=== PATIENT | male | born 1945 | race Caucasian/White ===

== ENCOUNTER 2022-01-27 12:31 | Emergency (ER) | payer OTHER ==
[~2022-01-27] VITALS: Ht 188 cm; Wt 113.4 kg
[2022-01-27] MEDS ORDERED: ONDANSETRON HCL 4 MG/2 ML VIAL IV ONE ×2 (14:30→19:30)
[2022-01-27] MEDS ORDERED: SODIUM CHLORIDE 0.9% 1,000 ML IV ONE ×2 (14:30→19:30)
[2022-01-27 15:37] LABS: Basophils # (auto) 0.1 10 ^3/uL (0-0.2); Basophils % (auto) 1.3 % (0.0-2.0); Eosinophils # (auto) 0 10 ^3/uL (0-0.8); Hematocrit 43.5 % (41.0-53.0); Lymphocytes # (auto) 0.2 10 ^3/uL (0.4-5.4); Lymphocytes % (auto) 2.5 % (10.0-50.0); Mean Corpuscular Hgb Conc. 34.4 g/dL (32.0-36.0); Mean Corpuscular Volume 95.7 fL (80.0-100.0); Monocytes # (auto) 0.2 10 ^3/uL (0-1.3); Neutrophils # (auto) 6.9 10 ^3/uL (1.6-8.6); Neutrophils % (auto) 93.2 % (37.0-80.0); Red Blood Cells 4.54 10^6/uL (4.5-5.90); Red Cell Distribution Width 13.3 % (11.8-14.3); White Blood Cell 7.4 10^3/uL (4.4-10.8)
[2022-01-27 15:57] LABS: Albumin 3.8 g/dL (3.4-5.0); BUN/Creatinine Ratio 18.5; Calcium 8.7 mg/dL (8.5-10.1); Potassium 4.8 mmol/L (3.5-5.1)
[2022-01-27 16:07] LABS: Total Protein 7.3 g/dL (6.4-8.2)
[2022-01-27] MEDS ORDERED: ONDANSETRON HCL 4 MG/2 ML VIAL ONE (19:13)
[2022-01-27] MEDS ORDERED: CIPR-173 PO (19:42)
[2022-01-27] MEDS ORDERED: ONDA-144 PO (19:42)
[2022-01-27] MEDS ORDERED: METR500T PO (19:42)
[2022-01-27] MEDS ORDERED: PERCOT PO (19:42)
[2022-01-27 20:16] VITALS: BP 121/68
== END 2022-01-27 20:18 | disposition home or self-care (01) ==
LOC: ER 12:31 → EDBD 12:31 → ER 20:18
DX: K57.30 Diverticulosis of large intestine without perforation or abscess without bleeding (principal); Z79.2 Long term (current) use of antibiotics; Z79.899 Other long term (current) drug therapy; Z88.5 Allergy status to narcotic agent; Z88.1 Allergy status to other antibiotic agents
CPT/HCPCS: 36415; 74176; 80053; 83690; 84484; 85025; 93005; 96361; 96374; 96376; 99285; J2405; J7030

== ENCOUNTER 2023-06-23 23:03 | Emergency (ER) | payer OTHER ==
[~2023-06-23] VITALS: Ht 175.3 cm; Wt 113.6 kg
[~2023-06-23 23:03] MED LIST: CIPR-173 PO; METR500T PO; ONDA-144 PO; PERCOT PO
[2023-06-23 23:56] LABS: Basophils # (auto) 0 10 ^3/uL (0-0.2); Basophils % (auto) 0.4 % (0.0-2.0); Eosinophils # (auto) 0.1 10 ^3/uL (0-0.8); Hematocrit 37.9 % (41.0-53.0); Hemoglobin 12.9 g/dL (13.5-17.5); Lymphocytes # (auto) 1.8 10 ^3/uL (0.4-5.4); Lymphocytes % (auto) 31.7 % (10.0-50.0); Mean Corpuscular Hemoglobin 33.4 pg (28.0-32.0); Mean Corpuscular Hgb Conc. 34.1 g/dL (32.0-36.0); Monocytes # (auto) 0.5 10 ^3/uL (0-1.3); Monocytes % (auto) 8.8 % (0.0-12.0); Neutrophils # (auto) 3.3 10 ^3/uL (1.6-8.6); Neutrophils % (auto) 57.1 % (37.0-80.0); Red Blood Cells 3.86 10^6/uL (4.5-5.90); Red Cell Distribution Width 13.5 % (11.8-14.3); White Blood Cell 5.7 10^3/uL (4.4-10.8)
[2023-06-24 00:13] LABS: Alanine Aminotransferase 20 U/L (7-40); Albumin 4.3 g/dL (3.2-4.8); Alkaline Phosphatase 94 U/L (46-116); Anion Gap 8 (5-15); Aspartate Aminotransferase 21 U/L (13-40); BUN/Creatinine Ratio 12.1 (10.0-20.0); Bilirubin, Total 0.5 mg/dL (0.2-1.0); Blood Alcohol 229.3 mg/dL (<10); Blood Urea Nitrogen 13 mg/dL (9-23); Calcium 8.8 mg/dL (8.7-10.4); Carbon Dioxide 23 mmol/L (20-30); Chloride 106 mmol/L (98-107); Glucose 112 mg/dL (74-106); Potassium 3.7 mmol/L (3.5-5.1); Sodium 137 mmol/L (136-145)
[2023-06-24 00:14] LABS: Total Protein 6.6 g/dL (5.7-8.2)
[2023-06-24 00:23] VITALS: PULSE 70; RESP 14; O2SAT 97
[2023-06-24 04:00] VITALS: BP 109/53; PULSE 71; RESP 14; O2SAT 96
== END 2023-06-24 06:00 | disposition home or self-care (01) ==
LOC: ER 23:03 → EDBD 23:03 → ER 06-24 06:00
DX: F10.129 Alcohol abuse with intoxication, unspecified (principal); I10 Essential (primary) hypertension; I25.2 Old myocardial infarction; E78.5 Hyperlipidemia, unspecified; R51.9 Headache, unspecified; Z88.8 Allergy status to other drugs, medicaments and biological substances; Z98.890 Other specified postprocedural states; Z79.1 Long term (current) use of non-steroidal anti-inflammatories (NSAID); Z79.899 Other long term (current) drug therapy; Y90.0 Blood alcohol level of less than 20 mg/100 ml
CPT/HCPCS: 36415; 70450; 71250; 72125; 74176; 80053; 80320; 83880; 84484; 85025; 93005

== ENCOUNTER 2024-11-01 10:02 | Inpatient (IN) | payer OTHER ==
[~2024-11-01] VITALS: Ht 180.3 cm; Wt 105.7 kg
[2024-11-01 10:41] LABS: Basophils # (auto) 0 10 ^3/uL (0-0.2); Basophils % (auto) 0.8 % (0.0-2.0); Eosinophils # (auto) 0.1 10 ^3/uL (0-0.8); Eosinophils % (auto) 2.3 % (0.0-7.0); Hematocrit 40.3 % (41.0-53.0); Hemoglobin 13.4 g/dL (13.5-17.5); Lymphocytes # (auto) 0.9 10 ^3/uL (0.4-5.4); Lymphocytes % (auto) 16.4 % (10.0-50.0); Mean Corpuscular Hemoglobin 31.1 pg (28.0-32.0); Mean Corpuscular Hgb Conc. 33.1 g/dL (32.0-36.0); Mean Corpuscular Volume 93.9 fL (80.0-100.0); Monocytes # (auto) 0.5 10 ^3/uL (0-1.3); Monocytes % (auto) 8.9 % (0.0-12.0); Neutrophils # (auto) 3.9 10 ^3/uL (1.6-8.6); Neutrophils % (auto) 71.6 % (37.0-80.0); Nucleated Red Blood Cells % 0.2 %; Platelet Count (auto) 244 10^3/uL (140-450); Red Cell Distribution Width 14.2 % (11.8-14.3); White Blood Cell 5.5 10^3/uL (4.4-10.8)
--- NOTE | 2024-11-01 10:42 | ECG ---
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
[2024-11-01 11:00] VITALS: RESP 14; O2SAT 93
[2024-11-01 11:07] LABS: Anion Gap 7 (5-15); Carbon Dioxide 25 mmol/L (20-31); Chloride 104 mmol/L (98-107); Sodium 136 mmol/L (136-145)
[2024-11-01 11:08] LABS: Calcium 9.7 mg/dL (8.7-10.4)
[2024-11-01 11:13] LABS: BUN/Creatinine Ratio 11.8 (10.0-20.0); Blood Urea Nitrogen 10 mg/dL (9-23); Glucose 119 mg/dL (74-106)
[2024-11-01] MEDS: SODIUM CHLORIDE 0.9% 1,000 ML IV ONE (11:39)
--- NOTE | 2024-11-01 11:42 | DVH ---
Left lower extremity venous duplex Clinical History: dvt Comparison: None Technique: Duplex Doppler evaluation of the deep venous system of the left lower extremity from the common femor al vein to the popliteal vein including color Doppler and spectral/pulsed waveform analysis was perfo rmed. Findings: The common femoral vein demonstrates appropriate compressibility and waveform variability. There is compressibility/patency of the great saphenous vein at the proximal thigh. The femoral vein demonstrates appropriate compressibility and waveform variability. The deep femoral vein demonstrates appropriate compressibility and waveform variability. The popliteal vein demonstrates appropriate compressibility and waveform variability. Calf veins are suboptimally visualized. Impression: No left femoropopliteal venous thrombosis.
[2024-11-01 12:25] LABS: Urine Bacteria None Seen /hpf (None Seen)
[2024-11-01 12:43] LABS: Urine Blood Negative /uL (Negative); Urine Clarity Clear (Clear); Urine Color Yellow (Yellow); Urine Mucus FEW (None Seen); Urine Protein, UAD Negative (Negative); Urine Specific Gravity 1.017 (1.001-1.035); Urine Squamous Epithelial Cell None Seen /hpf (<5); Urine Urobilinogen Normal (Negative); Urine WBC 1 /HPF (0-3); Urine pH 6.5 (5.0-9.0)
[2024-11-01] MEDS ORDERED: ONDANSETRON HCL 4 MG/2 ML VIAL IV PRN (16:00)
--- NOTE | 2024-11-01 16:00 | DVH ---
EXAM: CT HEAD WITHOUT CONTRAST HISTORY: hallucination/blurred vision COMPARISON: CT HEAD WITHOUT CONTRAST on DOS: 06/24/23 TECHNIQUE: Axial images of the head were obtained and reformatted in coronal and sagittal planes. All CT scans at this medical facility are performed using dose modulation techniques as appropriate t o a performed exam including the following: Automated exposure control was utilized; adjustment of th e MA and/or KV according to patient size; and use of iterative reconstruction technique. CT Dose: CTDI volume is 70 mGy. Dose-length product is 1325 mGy*cm FINDINGS: There is no evidence of acute intracranial hemorrhage, mass, mass effect midline shift. There is no h ydrocephalus or extra-axial fluid collection. There are several small chronic infarcts in the left c lincoln radiata and left basal ganglia. There are mild chronic small-vessel white matter ischemic benoit ges. The visualized paranasal sinuses and mastoid air cells are clear. The calvarium is intact. There is nonspecific soft tissue swelling and skin thickening in the right parietal vertex scalp. IMPRESSION: 1. No acute intracranial process. 2. Several small chronic infarcts in the left rockwell radiata and left basal ganglia. 3. Nonspecific soft tissue swelling and skin thickening in the right parietal vertex scalp. HS:Y
[2024-11-01] MEDS ORDERED: ATOR-47 (16:20)
[2024-11-01] MEDS ORDERED: LATA0.008 EACHEYE (16:20)
[2024-11-01] MEDS ORDERED: FLUT50SP (16:20)
[2024-11-01] MEDS ORDERED: BRIM0.2S17 EACHEYE (16:20)
[2024-11-01] MEDS ORDERED: DORZ1SOL3 (16:20)
[2024-11-01] MEDS ORDERED: LACT10SO3 PO (16:20)
[2024-11-01] MEDS ORDERED: ESCI1TAB36 (16:20)
[2024-11-01] MEDS ORDERED: CLOP75TA70 (16:20)
[2024-11-01] MEDS ORDERED: AMLO1TAB23 (16:20)
[2024-11-01] MEDS ORDERED: ATEN25TA (16:20)
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
[2024-11-01 18:21] LABS: Amphetamine Screen, Urine Neg (NEGATIVE); Barbiturate Scree,Urine Neg (NEGATIVE); Opiate Scree,Urine Neg (NEGATIVE)
[2024-11-01 18:21] LABS: Triglycerides 92 mg/dL (< 150)
[2024-11-01 18:22] LABS: Cholesterol 101 mg/dL (< 200); LDL Cholesterol 47 mg/dL (< 100)
[2024-11-01 18:22] LABS: Benzodiazephine Screen, Urine Neg (NEGATIVE); Cannabinoid Screen, Urine Neg (NEGATIVE); Cocaine Screen, Urine Neg (NEGATIVE); Phencyclidine Screen, Urine Neg (NEGATIVE)
[2024-11-01 18:24] LABS: HDL Cholesterol 29 mg/dL (40-59)
--- NOTE | 2024-11-01 18:28 | DVH ---
CHEST RADIOGRAPH Indication: cp Technique: Single frontal view of the chest was obtained Comparison: None FINDINGS: Lines and Tubes: Dual-chamber pacemaker in place with pulse generator over the left chest. Lungs: No focal consolidation. Pleura: No effusion. No pneumothorax. Cardiomediastinal contours: Unremarkable Bones: No acute osseous abnormality. IMPRESSION: 1. Poor inspiratory effort. HS:Y Mervat
[2024-11-01 19:30] VITALS: PULSE 70; RESP 17; O2SAT 93
[2024-11-01 21:00] VITALS: BP 132/77; PULSE 71; RESP 18; TEMP 97.7; O2SAT 95
[2024-11-01 21:20] VITALS: PULSE 72
[2024-11-01 21:21] VITALS: BP 122/79; PULSE 75; RESP 18; TEMP 97.7; O2SAT 95
[2024-11-01 21:22] VITALS: PULSE 71; RESP 18; O2SAT 95
[2024-11-01] MEDS ORDERED: ENOX40IN7 SC (22:34)
[2024-11-02] VITALS (8 sets, daily range): BP systolic 119–148; BP diastolic 61–77; PULSE 72–76; RESP 16–20; TEMP 97.8–98.8; O2SAT 94–98
[2024-11-02 06:05] LABS: Alanine Aminotransferase 24 U/L (7-40); Albumin 4.4 g/dL (3.2-4.8); Anion Gap 9 (5-15); Aspartate Aminotransferase 23 U/L (13-40); BUN/Creatinine Ratio 14.5 (10.0-20.0); Blood Urea Nitrogen 10 mg/dL (9-23); Carbon Dioxide 23 mmol/L (20-31); Chloride 104 mmol/L (98-107); Potassium 3.8 mmol/L (3.5-5.1); Sodium 136 mmol/L (136-145)
[2024-11-02 06:06] LABS: Bilirubin, Total 1.2 mg/dL (0.2-1.0); Total Protein 6.7 g/dL (5.7-8.2)
[2024-11-02 06:20] LABS: Basophils # (auto) 0 10 ^3/uL (0-0.2); Basophils % (auto) 0.4 % (0.0-2.0); Eosinophils # (auto) 0.1 10 ^3/uL (0-0.8); Eosinophils % (auto) 1.7 % (0.0-7.0); Hemoglobin 13.5 g/dL (13.5-17.5); Lymphocytes # (auto) 0.8 10 ^3/uL (0.4-5.4); Lymphocytes % (auto) 14.2 % (10.0-50.0); Mean Corpuscular Hemoglobin 31.6 pg (28.0-32.0); Mean Corpuscular Hgb Conc. 33.8 g/dL (32.0-36.0); Mean Corpuscular Volume 93.4 fL (80.0-100.0); Monocytes # (auto) 0.6 10 ^3/uL (0-1.3); Monocytes % (auto) 10.3 % (0.0-12.0); Neutrophils # (auto) 4.1 10 ^3/uL (1.6-8.6); Neutrophils % (auto) 73.4 % (37.0-80.0); Nucleated Red Blood Cells % 0.1 %; Platelet Count (auto) 217 10^3/uL (140-450); Red Blood Cells 4.28 10^6/uL (4.5-5.90); Red Cell Distribution Width 14.7 % (11.8-14.3); White Blood Cell 5.6 10^3/uL (4.4-10.8)
[2024-11-02 06:40] LABS: Alkaline Phosphatase 208 U/L (46-116); Glucose 107 mg/dL (74-106)
[2024-11-02] MEDS ORDERED: ENOXAPARIN SOD 30 MG/0.3 ML SYRINGE SC SCH (10:00)
[2024-11-02] MEDS ORDERED: OPTISON 3ml Vial for INJ IV ONE (10:10)
[2024-11-02] MEDS: PANTOPRAZOLE 40 MG/10 ML VIAL INJ IV SCH (11:02)
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
--- NOTE | 2024-11-02 18:46 | DVHSR ---
APPROVED REPORT EXAM: LIMITED Two-dimensional and M-mode echocardiogram with Doppler, color Doppler and Optison. Blood Pressure: 131/76 mmHg INDICATION Chest Pain RISK FACTORS Height: 70, Weight: 246 DIMENSIONS EF (%) 56.0 (55-70%)Rt. Atrium (1.9-4.0cm)Asc. Aorta cm Mitral Valve MitralMitral Stenosis E wave0.53m/sMV Mean GR.mmHg A wave1.04m/sMV Peak GR.mmHg E/A ratio0.52D MVAcm2 DECEL [id number] 1/2 [id number] IVRTmsDop MVA3.20cm2 Aortic Valve Aortic ValveAortic Stenosis V11.03m/Johnny Mean GR.5mmHg V21.52m/Johnny Peak GR.9mmHg Other Information Technically limited study due to body habitus, patient position. Patient has tremors. Conclusion Technically difficult study. Difficult acoustic windows. Off axis views. There appears to be concentric LVH and limited views obtained. Possibly left atrial enlargement. Moderate mitral annular calcification. Mild aortic sclerosis. Left ventricular systolic performance confirmed with contrast echo shows an EF about 60%. Normal RV function. There is mild apical septal hypokinesis to akinesis. Dopplers unremarkable/suboptimal. No pericardial effusion masses or vegetations.
--- NOTE | 2024-11-02 19:12 | DVH ---
EXAM: US ABDOMEN LIMITED CLINICAL HISTORY: hyperbilirubin, eval RUQ u/s TECHNIQUE: Grayscale and limited color flow doppler ultrasound of the right upper quadrant is perfor med. COMPARISON: None Findings: Liver measures 14.6 cm in length with increased echotexture and contour. No evidence of focal hepati c lesions or intra- or extrahepatic ductal dilatation. Common bile duct measures 0.4 cm in diameter. Normal hepatopedal flow noted within the portal vein. No perihepatic free fluid is noted. Gallbladder appears within normal limits with gallbladder wall thickness measuring 0.1 cm. There is b iliary sludge. No evidence of shadowing calculi or pericholecystic fluid. Negative sonographic Michaela y's sign. Pancreas only partially visualized due to overlying bowel gas but is otherwise unremarkable . Right kidney measures 11.7 cm with normal contours, echotexture and cortical thickness. No evidence o f hydronephrosis, calculi, cystic or solid renal lesions. Partially visualized inferior vena cava unremarkable. Impression: 1. No evidence of acute right upper quadrant abnormalities. 2. Hepatic steatosis. 3. Biliary sludge without evidence of acute cholecystitis.
[2024-11-02] MEDS ORDERED: OXYCODONE W/ ACETAMINOPHEN 5/325MG TABLET PO PRN (19:15)
[2024-11-02] MEDS ORDERED: DOCU-111 PO (20:13)
[2024-11-02] MEDS ORDERED: ASCO500T11 PO (20:13)
[2024-11-02] MEDS ORDERED: MELA3TAB27 PO (20:13)
[2024-11-02] MEDS ORDERED: PERCOT PO (20:13)
[2024-11-02] MEDS ORDERED: MULT-351 GT (20:13)
[2024-11-02] MEDS ORDERED: LIDO5PAD12 EXT (20:13)
[2024-11-02] MEDS ORDERED: ENO40SY SC (20:13)
[2024-11-02] MEDS ORDERED: FERR-7 PO (20:13)
[2024-11-02] MEDS ORDERED: PANT40TA2 PO (20:13)
[2024-11-02] MEDS ORDERED: CHOL20007 PO (20:16)
[2024-11-02] MEDS: MELATONIN 5 MG TAB PO SCH (21:49)
[2024-11-02] MEDS: ATORVASTATIN 20 MG TAB PO SCH (21:50)
[2024-11-02] MEDS: BACITRACIN TOP OINT 1 UD PKG TOP SCH (21:50)
[2024-11-03] VITALS (9 sets, daily range): BP systolic 100–144; BP diastolic 57–69; PULSE 71–79; RESP 16–22; TEMP 97.5–98.4; O2SAT 92–97
[2024-11-03 05:49] LABS: Basophils # (auto) 0 10 ^3/uL (0-0.2); Basophils % (auto) 0.4 % (0.0-2.0); Eosinophils # (auto) 0.1 10 ^3/uL (0-0.8); Eosinophils % (auto) 1.2 % (0.0-7.0); Hematocrit 38.1 % (41.0-53.0); Hemoglobin 13.2 g/dL (13.5-17.5); Lymphocytes # (auto) 0.8 10 ^3/uL (0.4-5.4); Lymphocytes % (auto) 12.7 % (10.0-50.0); Mean Corpuscular Hemoglobin 32.5 pg (28.0-32.0); Mean Corpuscular Hgb Conc. 34.7 g/dL (32.0-36.0); Mean Corpuscular Volume 93.6 fL (80.0-100.0); Monocytes # (auto) 0.7 10 ^3/uL (0-1.3); Monocytes % (auto) 10.7 % (0.0-12.0); Nucleated Red Blood Cells % 0.2 %; Platelet Count (auto) 208 10^3/uL (140-450); Red Blood Cells 4.07 10^6/uL (4.5-5.90); Red Cell Distribution Width 14.5 % (11.8-14.3); White Blood Cell 6.7 10^3/uL (4.4-10.8)
[2024-11-03 05:55] LABS: Alanine Aminotransferase 18 U/L (7-40); Albumin 4.3 g/dL (3.2-4.8); Anion Gap 9 (5-15); Aspartate Aminotransferase 17 U/L (13-40); Bilirubin, Total 1.2 mg/dL (0.2-1.0); Blood Urea Nitrogen 10 mg/dL (9-23); Calcium 9.6 mg/dL (8.7-10.4); Carbon Dioxide 23 mmol/L (20-31); Chloride 104 mmol/L (98-107); Potassium 3.9 mmol/L (3.5-5.1); Sodium 136 mmol/L (136-145); Total Protein 6.9 g/dL (5.7-8.2)
[2024-11-03 06:06] LABS: Alkaline Phosphatase 207 U/L (46-116); Glucose 136 mg/dL (74-106)
[2024-11-03] MEDS: CLOPIDOGREL BISULFATE 75 MG TAB PO SCH (09:43)
[2024-11-03] MEDS: ENOXAPARIN SOD 40 MG/0.4 ML SYRINGE SC SCH (09:43)
[2024-11-03] MEDS: CITALOPRAM HYDROBR 20 MG TAB PO SCH (09:44)
[2024-11-03] MEDS: ATENOLOL 25 MG TAB PO SCH (09:45)
[2024-11-03] MEDS: MUPIROCIN 2% OINT 15gm or 22gm TOP ONE (10:45)
[2024-11-03] MEDS: KETOROLAC TROMETH 30 MG/ML 1ML VIAL IV ONE (15:55)
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
[2024-11-03] MEDS ORDERED: MORPHINE SULFATE INJ 2 MG/ml SYRG IV PRN (20:00)
[2024-11-03] MEDS ORDERED: HYDROcodone-ACET 10/325MG TAB PO PRN (20:00)
[2024-11-03] MEDS: BACLOFEN 10 MG TAB PO SCH (21:10)
[2024-11-03] MEDS: MUPIROCIN 2% OINT 15gm or 22gm FOR MRSA NARES EACHNOSTRI SCH (21:11)
[2024-11-04] VITALS (12 sets, daily range): BP systolic 111–131; BP diastolic 63–73; PULSE 64–73; RESP 16–20; TEMP 97.4–98.6; O2SAT 92–97
[2024-11-04] MEDS: KETOROLAC TROMETH 30 MG/ML 1ML VIAL IV ONE ×2 (04:09→13:40)
[2024-11-04 06:54] LABS: Basophils # (auto) 0 10 ^3/uL (0-0.2); Basophils % (auto) 0.4 % (0.0-2.0); Eosinophils # (auto) 0.1 10 ^3/uL (0-0.8); Eosinophils % (auto) 1.9 % (0.0-7.0); Hemoglobin 12.8 g/dL (13.5-17.5); Lymphocytes # (auto) 0.7 10 ^3/uL (0.4-5.4); Lymphocytes % (auto) 9.3 % (10.0-50.0); Mean Corpuscular Hemoglobin 31.6 pg (28.0-32.0); Mean Corpuscular Hgb Conc. 33.7 g/dL (32.0-36.0); Mean Corpuscular Volume 93.6 fL (80.0-100.0); Monocytes # (auto) 0.8 10 ^3/uL (0-1.3); Monocytes % (auto) 10.5 % (0.0-12.0); Neutrophils # (auto) 6.2 10 ^3/uL (1.6-8.6); Neutrophils % (auto) 77.9 % (37.0-80.0); Nucleated Red Blood Cells % 0.1 %; Platelet Count (auto) 192 10^3/uL (140-450); Red Blood Cells 4.06 10^6/uL (4.5-5.90); Red Cell Distribution Width 14.6 % (11.8-14.3)
[2024-11-04 07:24] LABS: Alanine Aminotransferase 18 U/L (7-40); Albumin 4.2 g/dL (3.2-4.8); Anion Gap 11 (5-15); Aspartate Aminotransferase 17 U/L (13-40); BUN/Creatinine Ratio 18.8 (10.0-20.0); Bilirubin, Total 1.1 mg/dL (0.2-1.0); Blood Urea Nitrogen 13 mg/dL (9-23); Calcium 9.6 mg/dL (8.7-10.4); Carbon Dioxide 24 mmol/L (20-31); Chloride 101 mmol/L (98-107); Potassium 3.8 mmol/L (3.5-5.1); Sodium 136 mmol/L (136-145); Total Protein 6.7 g/dL (5.7-8.2)
[2024-11-04 07:30] LABS: Alkaline Phosphatase 183 U/L (46-116); Glucose 132 mg/dL (74-106)
[2024-11-04] MEDS ORDERED: BACL10TA PO (15:18)
[2024-11-04] MEDS ORDERED: TRAM-626 PO (15:18)
[2024-11-04] MEDS ORDERED: FERR-7 PO (15:18)
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
[2024-11-04] MEDS: traMADol HCL 50 MG TAB PO PRN (19:54)
[2024-11-05] VITALS (10 sets, daily range): BP systolic 104–126; BP diastolic 58–67; PULSE 72–77; RESP 18–20; TEMP 97.3–98.5; O2SAT 94–98
[2024-11-05 10:41] LABS: Hepatitis B Surface Antigen Negative (Negative); Hepatitis C Antibody Negative (Negative)
[2024-11-05] MEDS ORDERED: MORPHINE SULFATE INJ 2 MG/ml SYRG IV PRN (11:30)
[2024-11-05] MEDS: OXYCODONE W/ ACETAMINOPHEN 5/325MG TABLET PO PRN (13:35)
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
[2024-11-05] MEDS: traZODone HCL 50 MG TAB PO SCH (21:24)
[2024-11-06] VITALS (9 sets, daily range): BP systolic 112–135; BP diastolic 56–71; PULSE 67–75; RESP 16–20; TEMP 97.2–98.1; O2SAT 93–98
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
[2024-11-07] VITALS (7 sets, daily range): BP systolic 111–122; BP diastolic 70–78; PULSE 72–94; RESP 17–20; TEMP 97.8–98.1; O2SAT 9–96
[2024-11-07] MEDS: LACTULOSE 20Gm/30ML SOLN PO PRN (10:26)
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
[2024-11-07] MEDS: ACETAMINOPHEN 325 MG TAB PO PRN (15:05)
[2024-11-08 05:08] LABS: Vitamin B1, Whole Blood 124.4 nmol/L (66.5-200.0)
[2024-11-10 13:07] LABS: Vitamin D 25-Hydroxy 15 ng/mL (.); Vitamin D-2 25-Hydroxy <1.0 ng/mL (.); Vitamin D-3 25-Hydroxy 15 ng/mL (.)
== END 2024-11-07 21:35 | disposition short-term general hospital (02) | DRG 91 ==
LOC: ER 10:02 → EDBD 10:02 → OVERFLOW 15:59 → TELE-CENTR 21:13
PROVIDERS: ADMIT Student in an Organized Health Care Education/Training Program; ATTEND Student in an Organized Health Care Education/Training Program
DX: G92.8 Other toxic encephalopathy (principal); J96.01 Acute respiratory failure with hypoxia; F19.951 Other psychoactive substance use, unspecified with psychoactive substance-induced psychotic disorder with hallucinations; E55.9 Vitamin D deficiency, unspecified; F29 Unspecified psychosis not due to a substance or known physiological condition; G47.33 Obstructive sleep apnea (adult) (pediatric); G89.21 Chronic pain due to trauma; H53.8 Other visual disturbances; H54.62 Unqualified visual loss, left eye, normal vision right eye; I10 Essential (primary) hypertension; Z74.01 Bed confinement status; E78.5 Hyperlipidemia, unspecified; I25.2 Old myocardial infarction; K76.0 Fatty (change of) liver, not elsewhere classified; Z22.322 Carrier or suspected carrier of Methicillin resistant Staphylococcus aureus; Z86.718 Personal history of other venous thrombosis and embolism; Z98.61 Coronary angioplasty status; Z95.0 Presence of cardiac pacemaker; Z91.199 Patient's noncompliance with other medical treatment and regimen due to unspecified reason; Z88.5 Allergy status to narcotic agent; Z88.1 Allergy status to other antibiotic agents; Z86.73 Personal history of transient ischemic attack (TIA), and cerebral infarction without residual deficits; Z88.8 Allergy status to other drugs, medicaments and biological substances
CPT/HCPCS: 36415; 70450; 71045; 76705; 80048; 80053; 80061; 80307; 81001; 82140; 82306; 84425; 84443; 84484; 85025; 86803; 87081; 87340; 93005; 93306; 93971; 96360; 97110; 97163; 99291; G0378; J1885; J2470; Q9956

== ENCOUNTER 2024-11-27 23:23 | Inpatient (IN) | payer OTHER ==
[~2024-11-27] VITALS: Ht 182.9 cm; Wt 103.6 kg
[~2024-11-27 23:23] MED LIST changes: +ATEN25TA; +ATOR-47; +BACL10TA PO; +BRIM0.2S17 EACHEYE; +CHOL20007 PO; -CIPR-173 PO; +CLOP75TA70; +DOCU-111 PO; +DORZ1SOL3; +ENO40SY SC; +ESCI1TAB36; +FERR-7 PO; +FLUT50SP; +LACT10SO3 PO; +LATA0.008 EACHEYE; +LIDO5PAD12 EXT; +MELA3TAB27 PO; -METR500T PO; +MULT-351 GT; +PANT40TA2 PO; +TRAM-626 PO
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
[2024-11-28 07:10] VITALS: PULSE 75; RESP 12; O2SAT 95
--- NOTE | 2024-11-28 07:18 | ECG ---
[facility] Test Date: 2024-11-28 Test Time: 00:02:08 Pat Name: TORIN RICHARD Department: ED Room: 0239 Gender: M Compliance Field Technician: QUENTIN : 1945 Requested By: EMERGENCY EMERGENCY Order Number: [id number] Reading MD: Cesario Smith Measurements Intervals [place] Rate: 74 P: 0 MS: 157 QRS: 45 QRSD: 88 T: 0 QT: 470 QTc: 522 Interpretive Statements Atrial-paced rhythm Low voltage, precordial leads Anteroseptal infarct, age indeterminate ST elevation, consider inferior injury Prolonged QT interval Electronically Signed On 11-29-2024 14:07:15 PDT by Cesario Smith Please click the below link to view image of tracing.
[2024-11-28] MEDS: ONDANSETRON HCL 4 MG/2 ML VIAL IV ONE (08:19)
--- NOTE | 2024-11-28 08:59 | DVH ---
Exam: CT CT AB PEL WO CON-NO ORAL OR IV History: back pain, hx of spine fracture Comparison Study: None available at time of dictation. Technique: Multidetector spiral CT of the abdomen and pelvis was performed from lung bases to pubic s ymphysis. Imaging was performed without intravenous contrast. Coronal and sagittal multiplanar reform ats were obtained from the axial data set by the technologist. Radiation Dose : 1. Abdomen/Pelvis: CTDIvol 14.72 mGy, DLP 952.68 mGy*cm. Findings: Evaluation of vasculature and solid organs is limited due to lack of intravenous contrast use. Lung Bases: Bibasilar atelectasis. Visualized portions of the heart and pericardium are unremarkable. Liver: The liver is normal in size. No focal lesions. Gallbladder and Biliary Tree: The gallbladder is unremarkable. No intrahepatic or extrahepatic biliar y ductal dilatation. Spleen: Unremarkable Pancreas: The pancreas is grossly unremarkable. Adrenal Glands: Unremarkable Kidneys: Kidneys are unremarkable without calculi or hydronephrosis. GI tract: The stomach is grossly normal in appearance. No evidence of small bowel wall thickening or abnormal dilatation to suggest bowel obstruction. Colonic diverticulosis without acute diverticulitis . Normal caliber appendix. Peritoneum/mesentery/retroperitoneum. No evidence of free intraperitoneal air. No ascites. No evidenc e of suspicious lymphadenopathy. Abdominal Wall: Unremarkable. Vasculature: The visualized abdominal aorta is normal in size and caliber. Evaluation of abdominal a nd pelvic vessels is limited due to lack of intravenous contrast. There are atherosclerotic calcific ations in the aorta. Urinary Bladder: Grossly unremarkable for degree of distention. Pelvic Organs: Unremarkable Musculoskeletal: T10 compression fracture which is age-indeterminate good but appears acute. S shape d scoliosis. Degenerative changes in the bilateral hips. IMPRESSION: 1. Acute appearing T10 compression fracture. MRI of the thoracic spine is recommended. 2. No acute soft tissue findings in the abdomen or pelvis. 3. Colonic diverticulosis without acute diverticulitis.
[2024-11-28] MEDS: SODIUM CHLORIDE 0.9% 1,000 ML IV ONE ×2 (09:56→10:48)
[2024-11-28] MEDS: MORPHINE SULFATE 4 MG/ML SYR/VIAL IV ONE (11:00)
[2024-11-28 15:06] LABS: Basophils # (auto) 0 10 ^3/uL (0-0.2); Basophils % (auto) 0.3 % (0.0-2.0); Eosinophils # (auto) 0.1 10 ^3/uL (0-0.8); Eosinophils % (auto) 0.5 % (0.0-7.0); Hematocrit 39.1 % (41.0-53.0); Hemoglobin 12.9 g/dL (13.5-17.5); Lymphocytes # (auto) 0.9 10 ^3/uL (0.4-5.4); Mean Corpuscular Hemoglobin 31.1 pg (28.0-32.0); Mean Corpuscular Hgb Conc. 32.9 g/dL (32.0-36.0); Mean Corpuscular Volume 94.6 fL (80.0-100.0); Monocytes # (auto) 0.9 10 ^3/uL (0-1.3); Monocytes % (auto) 8.3 % (0.0-12.0); Neutrophils # (auto) 8.9 10 ^3/uL (1.6-8.6); Neutrophils % (auto) 82.9 % (37.0-80.0); Platelet Count (auto) 154 10^3/uL (140-450); Red Blood Cells 4.13 10^6/uL (4.5-5.90); Red Cell Distribution Width 16.2 % (11.8-14.3); White Blood Cell 10.8 10^3/uL (4.4-10.8)
[2024-11-28 15:23] LABS: Alanine Aminotransferase 22 U/L (7-40); Albumin 3.9 g/dL (3.2-4.8); Anion Gap 4 (5-15); Aspartate Aminotransferase 21 U/L (13-40); BUN/Creatinine Ratio 15.8 (10.0-20.0); Bilirubin, Total 0.8 mg/dL (0.2-1.0); Blood Urea Nitrogen 12 mg/dL (9-23); Calcium 8.9 mg/dL (8.7-10.4); Carbon Dioxide 25 mmol/L (20-31); Sodium 138 mmol/L (136-145); Total Protein 6.2 g/dL (5.7-8.2)
[2024-11-28 15:25] LABS: Alkaline Phosphatase 155 U/L (46-116); Chloride 109 mmol/L (98-107); Glucose 127 mg/dL (74-106)
[2024-11-28 19:30] VITALS: PULSE 76; RESP 18; O2SAT 96
[2024-11-28] MEDS ORDERED: ACETAMINOPHEN 325 MG TAB PO PRN (20:30)
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
[2024-11-28] MEDS: MORPHINE SULFATE INJ 2 MG/ml SYRG IV PRN (21:22)
[2024-11-28 22:55] VITALS: BP 115/51; PULSE 72; RESP 20; TEMP 98.2; O2SAT 94
[2024-11-28] MEDS: ATORVASTATIN 20 MG TAB PO SCH (23:03)
[2024-11-29] VITALS (9 sets, daily range): BP systolic 113–148; BP diastolic 45–86; PULSE 72–76; RESP 16–20; TEMP 97.9–98.2; O2SAT 94–96
[2024-11-29] MEDS: PANTOPRAZOLE 40 MG TAB PO ONE (00:07)
[2024-11-29 05:42] LABS: Chloride 107 mmol/L (98-107); Potassium 4.1 mmol/L (3.5-5.1); Sodium 138 mmol/L (136-145)
[2024-11-29 05:43] LABS: Anion Gap 5 (5-15); Calcium 9.1 mg/dL (8.7-10.4); Carbon Dioxide 26 mmol/L (20-31)
[2024-11-29 05:48] LABS: BUN/Creatinine Ratio 13.9 (10.0-20.0); Blood Urea Nitrogen 10 mg/dL (9-23)
[2024-11-29 05:54] LABS: Glucose 117 mg/dL (74-106)
[2024-11-29] MEDS: PANTOPRAZOLE 40 MG TAB PO SCH (06:10)
[2024-11-29] MEDS: CLOPIDOGREL BISULFATE 75 MG TAB PO SCH (10:23)
[2024-11-29] MEDS: ENOXAPARIN SOD 40 MG/0.4 ML SYRINGE SC SCH (10:23)
[2024-11-29] MEDS: ATENOLOL 25 MG TAB PO SCH (10:24)
--- NOTE | 2024-11-29 11:11 | DVHDS2 ---
Discharge Summary Date of Admission Nov 28, 2024 at 20:17 Date of Discharge: Nov 29, 2024 Labs/Diagnostic Data: Laboratory Results Test 11/29/24 05:16 11/28/24 14:57 Sodium Level 138 mmol/L (136-145) Potassium Level 4.1 mmol/L (3.5-5.1) Chloride Level 107 mmol/L (98-107) Carbon Dioxide Level 26 mmol/L (20-31) Anion Gap 5 (5-15) Blood Urea Nitrogen 10 mg/dL (9-23) Creatinine 0.72 mg/dL (0.700-1.30) Glomerular Filtration Rate Calc 92 mL/min (>90) BUN/Creatinine Ratio 13.9 (10.0-20.0) Serum Glucose 117 mg/dL (74-106) Calcium Level 9.1 mg/dL (8.7-10.4) White Blood Count 10.8 10^3/uL (4.4-10.8) Red Blood Count 4.13 10^6/uL (4.5-5.90) Hemoglobin 12.9 g/dL (13.5-17.5) Hematocrit 39.1 % (41.0-53.0) Mean Corpuscular Volume 94.6 fL (80.0-100.0) Mean Corpuscular Hemoglobin 31.1 pg (28.0-32.0) Mean Corpuscular Hemoglobin Concent 32.9 g/dL (32.0-36.0) Red Cell Distribution Width 16.2 % (11.8-14.3) Platelet Count 154 10^3/uL (140-450) Mean Platelet Volume 8.3 fL (6.9-10.8) Neutrophils (%) (Auto) 82.9 % (37.0-80.0) Lymphocytes (%) (Auto) 8.0 % (10.0-50.0) Monocytes (%) (Auto) 8.3 % (0.0-12.0) Eosinophils (%) (Auto) 0.5 % (0.0-7.0) Basophils (%) (Auto) 0.3 % (0.0-2.0) Neutrophils # (Auto) 8.9 10 ^3/uL (1.6-8.6) Lymphocytes # (Auto) 0.9 10 ^3/uL (0.4-5.4) Monocytes # (Auto) 0.9 10 ^3/uL (0-1.3) Eosinophils # (Auto) 0.1 10 ^3/uL (0-0.8) Basophils # (Auto) 0 10 ^3/uL (0-0.2) Nucleated Red Blood Cells 0.0 % Total Bilirubin 0.8 mg/dL (0.2-1.0) Aspartate Amino Transferase (AST) 21 U/L (13-40) Alanine Aminotransferase (ALT) 22 U/L (7-40) Alkaline Phosphatase 155 U/L (46-116) Total Protein 6.2 g/dL (5.7-8.2) Albumin 3.9 g/dL (3.2-4.8) Other Laboratory Tests 11/29/24 05:16 11/28/24 14:57 Brief Hx & Hospital Course: see dictated note Condition at Discharge: Fair Final Diagnosis/Problems List compression fracture Discharge Disposition: Acute Care Facility Discharge Instruct/Medications Diet: Cardiac 2g Na,low cholest Activity: No Restrictions, As Tolerated Follow Up/Referral: [facility] Medications: per nov Discharge Statement: "Patient was advised to return to the ER or call 911 if any headaches, dizziness, shortness of breath, chest pain, abdominal pain, bleeding, fevers, or worsening of medical condition. Patient was counseled about treatment plan, medications, possible side effects, patientverbalized understanding. All questions were answered to the best of my ability. This discharge took greater then 30 minutes in planning, reviewing documentation, counseling the patient, and discussing with other team members." ASSESSMENT ASSESSMENT Assessment compression fracture Date of Service: Nov 29, 2024 Billing Provider: RAJEEV MOLINA MD Common Visit Codes: 38571-XWB/OBS DISCH DAY >30min Secondary Visit Codes: 16900-[id number] CARE PLAN 30 MINUTES RAJEEV MOLINA MD Nov 29, 2024 11:11
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
[2024-11-29] MEDS: DOCUSATE SOD 100 MG CAP PO ONE (12:28)
[2024-11-29] MEDS: ONDANSETRON HCL 4 MG/2 ML VIAL IV PRN (19:01)
[2024-11-29] MEDS: OXYCODONE W/ ACETAMINOPHEN 5/325MG TABLET PO PRN (21:08)
== END 2024-11-29 21:00 | disposition short-term general hospital (02) | DRG 544 ==
LOC: ER 23:23 → OVERFLOW 11-28 20:17 → EAST 11-28 22:10
PROVIDERS: ADMIT Internal Medicine; ATTEND Internal Medicine
DX: M48.54XA Collapsed vertebra, not elsewhere classified, thoracic region, initial encounter for fracture (principal); G89.29 Other chronic pain; I10 Essential (primary) hypertension; E66.9 Obesity, unspecified; E78.5 Hyperlipidemia, unspecified; I25.10 Atherosclerotic heart disease of native coronary artery without angina pectoris; Z95.0 Presence of cardiac pacemaker; Z88.5 Allergy status to narcotic agent; Z88.1 Allergy status to other antibiotic agents; Z79.899 Other long term (current) drug therapy; Z86.73 Personal history of transient ischemic attack (TIA), and cerebral infarction without residual deficits; Z95.5 Presence of coronary angioplasty implant and graft
CPT/HCPCS: 36415; 74176; 80048; 80053; 85025; 87081; 93005; 96361; 96374; 96375; 96376; G0378; J2405